=== PATIENT | female | born 1990 | race Caucasian/White ===

== ENCOUNTER 2018-06-02 08:22 | Emergency (ER) | payer SELFPAY ==
--- NOTE | 2018-06-02 08:32 | ED Physician Documentation ---
General Adult - HISTORIAN Historian: patient - HPI Stated Complaint: left knee pain Chief Complaint: Lower Extremity Problem Onset: hours (1) Timing: still present Severity: mild Further Comments: yes (she states she fell on a patch of ice and directly hit her left knee on the concrete . She denies any other injury. She is able to stand and hold weight on her leg but pain is increased. Currently 7-8 on1/10 scale. She has not taken any OTC meds for pain. She does have an ice pack which she states is helping some with the pain. No previous injury to the knee) - ROS CONST: no problems - PAST HX Past History: none Immunizations: UTD Allergies/Adverse Reactions: Allergies Allergy/AdvReac Type Severity Reaction Status Date / Time Penicillins Allergy Severe Anaphylaxis Verified 06/02/18 08:40 amoxicillin Allergy Verified 06/02/18 08:40 Home Medications: Ambulatory Orders Medication Instructions Recorded NK 06/02/18 - SOCIAL HX Smoking History: non-smoker Alcohol Use: none Drug Use: none - FAMILY HX Family History: No - VITAL SIGNS Vital Signs: Vital Signs Temp Pulse Resp BP Pulse Ox 131/68 11/13/15 00:36 - REVIEWED ASSESSMENTS Nursing Assessment Reviewed: Yes Vitals Reviewed: Yes Progress - Progress Progress: 0900: discussed results and plan. She is agreeable. She is aware if she has continued issues she needs to see her PCP for any possible PT or MRI DG ED Results Lab/Radiology - Radiology Radiology Impressions: Left knee History: Fell on ice AP, lateral and sunrise views of the left knee demonstrate no osseous abnormality and no joint effusion Impression: Unremarkable left knee. Electronically signed on Jun 02, 2018 8:55:43 AM CHUCK SPLITTER by: Michelle Medrano General Adult Physical Exam - PHYSICAL EXAM GENERAL APPEARANCE: no distress EENT: eye inspection normal NECK: normal inspection RESPIRATORY: no resp distress, chest non-tender, breath sounds normal CVS: reg rate & rhythm, heart sounds normal ABDOMEN: soft SKIN: warm/dry EXTREMITIES: non-tender, other (left knee with mild redness on right lateral side of patella. No significant swelling. no open areas. ) NEURO: oriented X3 Discharge Clincal Impression: Left knee pain Qualifiers: Chronicity: acute Qualified Code(s): M25.562 - Pain in left knee Referrals: Primary Doctor,No [Primary Care Provider] - 2 Days Comments: 1. Tylenol or Ibuprofen as directed for pain as needed 2. Ice and elevate for 24 hours 3. ARELIS wrap as needed after 24 hours 4. Follow up with PCP of any continued pain or issues 5. Return to ER for any concerns Condition: Stable Disposition: 01 HOME, SELF-CARE Decision to Admit: NO Date of Decison to Admit: 06/02/18 Decision Time: 09:08
--- NOTE | 2018-06-02 08:58 | Diagnostic Imaging Report ---
EZE WAGNER [facility] [id number] [facility] [address] [address] Report Submission Date: Jun 02, 2018 8:55:43 AM FIELD SERVICE ANALYST Patient Study Name: LUCY DE LA GARZA Date: Jun 02, 2018 8:37:54 AM FIELD SERVICE ANALYST Modality Type: DX Gender: F Description: LOWER EXTREMITY : 86 Institution: [facility] Physician: EZE WAGNER Left knee History: Fell on ice AP, lateral and sunrise views of the left knee demonstrate no osseous abnormality and no joint effusion Impression: Unremarkable left knee. Electronically signed on Jun 02, 2018 8:55:43 AM FIELD SERVICE ANALYST by: Michelle RODRIGUEZ
[2018-06-02] MEDS ORDERED: KETOROLAC TROMETHAMINE 60 MG/2 ML VIAL IM ONE (08:59)
[2018-06-02 09:19] VITALS: BP 123/72
== END 2018-06-02 09:10 | disposition home or self-care (01) ==
LOC: ED 08:22
DX: M25.562 Pain in left knee (principal); W19.XXXA Unspecified fall, initial encounter; Y93.9 Activity, unspecified; Y92.9 Unspecified place or not applicable; Y99.9 Unspecified external cause status
CPT/HCPCS: 73562; J1885; 96372; 99283